=== PATIENT | male | born 1985 | race Caucasian/White ===

== ENCOUNTER 2016-07-12 20:53 | Emergency (ER) | payer OTHER ==
[~2016-07-12] VITALS: Ht 175.3 cm; Wt 100.7 kg
[~2016-07-12 20:53] MED LIST: FLEXERIL10 MG PO; NAPROSYN500 MG PO; NORCO 7.5/321 TABLET PO; PREDNISONE20 MG PO; VALIUM5 MG PO
[2016-07-12] MEDS ORDERED: SUBOXONE 8 MG-1 EAC2 SL (22:58)
[2016-07-12 23:23] LABS: HEMATOCRIT 34.1 % (38.0-50.0); MCH 29.4 PG (29.0-34.0); MCHC 33.4 G/DL (30.0-36.0); MCV 87.9 FL (86-99); MEAN PLAT.VOLUME 10.7 uM^3 (9.0-12.4); PLATELET COUNT 153 K/uL (156-360); RBC DIS.WIDTH-CV 14.9 % (11.8-14.6); RED BLOOD COUNT 3.88 M/uL (4.00-5.50); WHITE BLOOD COUNT 13.2 K/uL (4.1-10.2)
[2016-07-12 23:41] LABS: CHLORIDE 100 mEq/L (99-109); POTASSIUM 4.8 mEq/L (3.7-5.4); SODIUM 140 mEq/L (136-147)
[2016-07-12 23:43] LABS: GLUCOSE 90 mg/dL (70-99)
[2016-07-12 23:44] LABS: ANION GAP 15 MEQ/L (2-14)
[2016-07-12 23:46] LABS: GFR ESTIMATE (CALCULATED) > 59 mL/min/
[2016-07-12 23:47] LABS: UREA NITROGEN (BUN) 17 mg/dL (9-23)
[2016-07-13 04:02] VITALS: BP 104/54
== END 2016-07-13 04:02 | disposition short-term general hospital (02) ==
LOC: EME 20:53
PROVIDERS: Physician Assistant
DX: M65.141 Other infective (teno)synovitis, right hand (principal); Z88.6 Allergy status to analgesic agent; Z87.898 Personal history of other specified conditions
CPT/HCPCS: 73130; 73201; 80048; 83605; 85027; 87040; 99281; 99285; J1885; J2270; J7050